=== PATIENT | female | born 1925 | race Caucasian/White ===

== ENCOUNTER 2016-08-24 06:29 | Emergency (ER) | payer MEDICARE, BC ==
[2016-08-24] MEDS ORDERED: HYDROCODONE/ACETAMINOPHEN 5/325MG TABLET ONE (07:24)
--- NOTE | 2016-08-24 08:05 | RAD ---
RIGHT HIP AND AP PELVIS SERIES HISTORY: Increased right hip pain. Frontal view of the pelvis with frontal and frog-leg lateral views of the right hip. Comparison against 10/21/2015, 06/09/2016. PELVIC RING: Grossly intact. Early degenerative change along the pubic symphysis. HIP ALIGNMENT: Grossly unremarkable. 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 Notable associated subchondral cystic change with increase in osteophyte formation. Moderate axial joint space loss on the left. FRACTURE: L3 compression deformity, seen on 06/09/2016 number spine series. LUMBAR SPINE: Compression deformity as above. Evidence of disc and facet degeneration. 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 Moderate joint space loss on the left. No displaced acute fracture. Redemonstration of lumbar spondylosis and L3 compression deformity.
--- NOTE | 2016-08-24 08:07 | RAD ---
LUMBAR SPINE 3 VIEWS HISTORY: Increasing right hip pain. Frontal, lateral, and frontal cone down views of lumbar spine acquired. COMPARISON: 06/01/2016. BONE DENSITY: Diffuse osteopenia. ALIGNMENT: Residual anterolisthesis at L5-S1. Exaggerated lordosis.. Mild dextroconvex curvature. DISC SPACES: Posterior disc space narrowing at L5-S1 level, unchanged.. COMPRESSION DEFORMITY: Redemonstration of compression deformities at the T12, L1, and L3 levels, severe at L3 with minor associated retropulsion; this is an unchanged appearance. FACET JOINTS: Prominent facet degeneration at the L4-5 and L5-S1 levels. 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 IMPRESSION: 1. Stable compression deformities of T12, L1, and L3 vertebrae with no new compression deformity or displaced fracture fragment. 2. Background changes of lumbar spondylosis, disc degeneration worst at L5-S1, facet degeneration at L4-5 and L5-S1 levels. Associated changes of Baastrup's disease. 3. Mild anterolisthesis at L5-S1. 4. Diffuse osteopenia.
== END 2016-08-24 11:14 | disposition home or self-care (01) ==
LOC: ED 06:29
DX: M54.5 Low back pain (principal); M16.11 Unilateral primary osteoarthritis, right hip; I48.91 Unspecified atrial fibrillation; I10 Essential (primary) hypertension
CPT/HCPCS: 73502; 72100; 97162; 99283 ×2; A9270